=== PATIENT | male | born 1945 | race Caucasian/White ===

== ENCOUNTER → 2017-06-24 | Outpatient (CLI) | payer MEDICARE ==
[~2017-06-24] VITALS: Ht 170.2 cm; Wt 82.5 kg
[~2017-06-24] MED LIST: ASPI-515 PO; BUPIVACAINE/PF 0.5% ONE; CHOL40002 PO; LACTATED RINGERS 1,000 ML IV SCH; LIDOCAINE 1%, 2ML ONE; LIDOCAINE 1%, 2ML SQ PRN; LOVA20TA2 PO; PROP10TA PO; UBID150C PO
[2017-06-24 07:34] VITALS: BP 143/80
[2017-06-24 08:42] LABS: HEMATOCRIT 44.6 % (39.2-51.8); HEMOGLOBIN 15.3 g/dL (13.7-18.0); WHITE BLOOD COUNT 4.2 x10^3/uL (3.4-10)
[2017-06-24 08:46] LABS: ASPARTATE AMINO TRANSFERASE 21 U/L (15-37); BLOOD UREA NITROGEN 17 mg/dL (7-18)
== END | disposition home or self-care (01) ==
LOC: OUT 06:56 → STAR 07:00 → EDSTATUS 09:00 → OUT 09:00
PROVIDERS: ATTEND Surgery
DX: Z01.818 Encounter for other preprocedural examination (principal); K42.9 Umbilical hernia without obstruction or gangrene
CPT/HCPCS: 36415; 80053; 85025; 85610; 93005; J3490

== ENCOUNTER 2017-07-20 13:47 | Day surgery (SDC) | payer MEDICARE ==
[~2017-07-20] VITALS: Ht 170.2 cm; Wt 80.0 kg
[~2017-07-20 13:47] MED LIST changes: -BUPIVACAINE/PF 0.5% ONE; -LACTATED RINGERS 1,000 ML IV SCH; -LIDOCAINE 1%, 2ML ONE; -LIDOCAINE 1%, 2ML SQ PRN
[2017-07-20 14:09] VITALS: BP 143/80
[2017-07-20] MEDS ORDERED: LACTATED RINGERS 1,000 ML IV SCH ×2 (14:12→20:00)
[2017-07-20] MEDS ORDERED: EPINEPHRINE 1 MG/ML, 1ML ONE (14:27)
[2017-07-20] MEDS ORDERED: BUPIVACAINE/PF 0.5% ONE (14:27)
[2017-07-20] MEDS ORDERED: PLEASE ENTER ALLERGIES MC SCH ×2 (14:30)
[2017-07-20] MEDS ORDERED: PLEASE ENTER HEIGHT AND WEIGHT MC SCH (14:30)
[2017-07-20] MEDS ORDERED: MIDAZOLAM 1 MG/ML, 2ML ONE (14:35)
[2017-07-20] MEDS ORDERED: PROPOFOL 10 MG/ML, 20ML ONE (14:36)
[2017-07-20] MEDS ORDERED: FENTANYL PF 100 MCG/2ML ONE ×3 (14:36→17:11)
[2017-07-20] MEDS ORDERED: ROCURONIUM 10 MG/ML,10ML ONE (14:37)
[2017-07-20] MEDS ORDERED: GLYCOPYRROLATE 0.4 MG/2 ML, 2ML ONE (14:38)
[2017-07-20] MEDS ORDERED: CEFAZOLIN 1,000 MG ONE ×2 (14:38)
[2017-07-20] MEDS ORDERED: NEOSTIGMINE 1 MG/ML, 10ML ONE (14:38)
[2017-07-20] MEDS ORDERED: SODIUM CHLORIDE 0.9% PF 10ML ONE (14:39)
[2017-07-20] MEDS ORDERED: MEPERIDINE/PF 25MG/0.5ML IVPush PRN (16:00)
[2017-07-20] MEDS ORDERED: OXYcodone 5 MG/5 ML ORAL.SOL UDC PO PRN (16:00)
[2017-07-20] MEDS ORDERED: PROMETHAZINE 25 MG/ML, 1ML IV PRN (16:00)
[2017-07-20] MEDS ORDERED: FENTANYL PF 100 MCG/2ML IV PRN (16:00)
[2017-07-20] MEDS ORDERED: HYDROmorphone 1 MG/ML, 1ML IV PRN (16:00)
[2017-07-20] MEDS ORDERED: hydrALAzine 20 MG/ML, 1ML IV PRN (16:00)
[2017-07-20] MEDS ORDERED: ONDANSETRON 2MG/ML, 2ML IVPush PRN ×2 (16:00→20:00)
[2017-07-20] MEDS ORDERED: LABETALOL 5MG/ML, 20ML IV PRN (16:00)
[2017-07-20] MEDS ORDERED: ACETAMINOPHEN 325 MG TABLET PO PRN (16:00)
[2017-07-20] MEDS ORDERED: BUPIVACAINE/PF-EPI 0.5% 1:200K IM ONE (16:20)
[2017-07-20] MEDS ORDERED: OXYcodone 5 MG/5 ML ORAL.SOL UDC ONE (17:11)
[2017-07-20] MEDS ORDERED: ACETAMINOPHEN 650 MG/20.3 ML UDC ONE (17:11)
[2017-07-20 19:16] VITALS: BP 116/71
[2017-07-20] MEDS ORDERED: DIPHENHYDRAMINE 50 MG/ML, 1ML IVPush PRN (20:00)
[2017-07-20] MEDS ORDERED: HYDROcodone/APAP 7.5-325MG/15ML UDC PO PRN (20:00)
[2017-07-20] MEDS ORDERED: LOVASTATIN 20 MG TABLET PO SCH (21:00)
[2017-07-21] MEDS ORDERED: ASPIRIN 81 MG TABLET EC PO SCH (06:00)
[2017-07-21] MEDS ORDERED: CHOLECALCIFEROL 1,000 UNIT TABLET PO SCH (09:00)
[2017-07-21] MEDS ORDERED: PROPRANOLOL 10 MG TABLET PO SCH (09:00)
== END 2017-07-20 20:00 | disposition home or self-care (01) ==
LOC: OR 13:47 → 4NOR 18:30 → OR 20:00
PROVIDERS: ATTEND Surgery
DX: K42.0 Umbilical hernia with obstruction, without gangrene (principal); E78.5 Hyperlipidemia, unspecified; I10 Essential (primary) hypertension; Z98.890 Other specified postprocedural states; Z72.89 Other problems related to lifestyle; Z79.82 Long term (current) use of aspirin
CPT/HCPCS: 49587; J0171; J0690; J2250; J2704; J2710; J3010; J3490